=== PATIENT | male | born 1970 | race Caucasian/White ===

== ENCOUNTER 2017-01-07 20:37 | Emergency (ER) | payer OTHER ==
[~2017-01-07] VITALS: Ht 175.3 cm; Wt 76.2 kg
[2017-01-07] MEDS ORDERED: LISINOPRIL10 MG PO (20:46)
[2017-01-07] MEDS ORDERED: ATORVASTATIN CA40 MG PO (20:47)
[2017-01-07] MEDS ORDERED: AMPHETAMINE SAL30 MG PO (20:47)
[2017-01-07 22:16] VITALS: BP 136/81
== END 2017-01-07 22:16 | disposition home or self-care (01) ==
LOC: ER 20:37
DX: S61.213A Laceration without foreign body of left middle finger without damage to nail, initial encounter (principal); W26.0XXA Contact with knife, initial encounter; Y93.89 Activity, other specified; Y92.89 Other specified places as the place of occurrence of the external cause; Y99.8 Other external cause status; Z88.5 Allergy status to narcotic agent; Z88.8 Allergy status to other drugs, medicaments and biological substances